=== PATIENT | female | born 1990 | race Caucasian/White ===

== ENCOUNTER 2017-09-28 20:14 | Emergency (ER) | payer SELFPAY ==
[2016-12-05 07:45] VITALS: Wt 124.7 kg
[~2017-09-28 20:14] MED LIST: ACE3 PO; BUTA1CAP5 PO; BUTA1TAB14 PO; Benzocaine 60 ML TP; CALC-515 PO; CEFD300C35 PO; CEFI400C PO; DOCU240C67 PO; DOXY-179 PO; DOXY-181 PO; HYDR2TAB4 PO; IBUP800T37 PO; LOR5/325 PO; Lanolin TP; MET2TH PO; OXYC-865 PO; PNV1TABL70 PO; TUCKS TP; TYLENOL; VISCOUS LIDOCAINE
[2017-09-28 20:17] VITALS: BP 127/112
--- NOTE | 2017-09-28 20:23 | ER Report ---
History and Physical Time Seen By MD: 20:15 HPI/ROS CHIEF COMPLAINT: Sore throat, fever HISTORY OF PRESENT ILLNESS: 27-year-old female presents ambulatory to the ER complaining of sore throat for 2 days. She is concerned she may have strep pharyngitis. She is afraid she might give it to her kids. Patient denies exposure to ill contacts. She denies rhinitis or ear pain. REVIEW OF SYSTEMS: Respiratory: No cough, no dyspnea. Cardiovascular: No chest pain, no palpitations. Gastrointestinal: No vomiting, no abdominal pain. Musculoskeletal: No back pain. Allergies: Coded Allergies: No Known Drug Allergies (Verified , 09/28/17) Home Meds Active Scripts Butalb/Acetaminophen/Caff 50-325-40 Mg (FIORICET 50-325-40) 1 Each Tab, 2 EACH PO Q4H Y for HEADACHE, #20 TAB Prov:WANDY RJOAS MD 12/27/14 Discontinued Reported Medications Calcium Carbonate (TUMS) 200 Mg Tab.chew, 200 MG PO, TAB.CHEW 12/05/16 Pnv Cmb#95/Ferrous Fumarate/Fa ( MULTIVITAMINS TABLET) 1 Each Tablet, 1 EACH PO 02/02/14 Discontinued Scripts Hydromorphone Hcl (HYDROMORPHONE HCL) 2 Mg Tablet, 2-4 MG PO Q4H Y for PAIN, # 14 TAB 0 Refills Prov:STEF CORRAL MD 12/06/16 Reviewed Nurses Notes: Yes Old Medical Records Reviewed: Yes Hx Smoking: Yes Smoking Status: Former Smoker Exposure to Second Hand Smoke?: No Hx Substance Use Disorder: No Hx Alcohol Use: No Constitutional Vital Sign - Last 24 Hours 09/28/17 09/28/17 20:17 20:29 Temp 99.5 Pulse 110 108 Resp 24 B/P (MAP) 127/112 Pulse Ox 94 98 O2 Delivery Room Air Physical Exam Vital signs stable, temp 99 5, pulse ox normal General Appearance: The patient is alert, has no immediate need for airway protection and no current signs of toxicity. HEENT: Pupils equal and round no injection. TMs normal, oropharynx with moderate erythema, mild tonsillar hypertrophy, no exudate Respiratory: Chest is non tender, lungs are clear to auscultation. Cardiac: regular rate and rhythm Gastrointestinal: Abdomen is soft and non tender, no masses, bowel sounds normal. No sputum megaly Musculoskeletal: Neck: Neck is supple and non tender. No lymphadenopathy Extremities have full range of motion and are non tender. Skin: No rashes or lesions. DIFFERENTIAL DIAGNOSIS: After history and physical exam differential diagnosis was considered for viral pharyngitis, strep pharyngitis, sinusitis, lymphadenopathy, otitis media Medical Decision Making Data Points Laboratory Hematology Test 09/28/17 20:19 Group A Streptococcus Screen Negative (NEGATIVE) Chemistry Test 09/28/17 20:19 Group A Streptococcus Screen Negative (NEGATIVE) Microbiology Microbiology Date/Time Source Procedure Growth Status 09/28/17 20:19 Throat Group A Streptococcus Screen ([facility]) - Final GROUP A STREP (STREPTOCOCCUS PYOGENES... Complete ED Course/Re-evaluation ED Course Patient was admitted to an examination room. H&P was done. The differential diagnoses was considered. On that ankle examination. Patient has acute pharyngitis. Rapid strep is performed which is negative. Patient's advised symptomatically treatment for her viral pharyngitis. Decision to Disposition Date: Sep 28, 2017 Decision to Disposition Time: 20:42 Depart Departure Latest Vital Signs Vital Signs Date Time Temp Pulse Resp B/P (MAP) Pulse Ox O2 Delivery O2 Flow Rate FiO2 09/28/17 20:29 108 98 09/28/17 20:17 99.5 24 127/112 Room Air Impression: Primary Impression: Viral pharyngitis Additional Impression: Myalgia Condition: Improved Disposition: HOME OR SELF-CARE Patient Instructions: Viral Syndrome (ED) Additional Instructions: Take ibuprofen and Tylenol as needed for symptom relief Use numbing throat lozenge or such as Cepastat Chloraseptic or Sucrets Follow-up with primary care if unimproved in 3-5 days. Problem Qualifiers RENATO ONEILL DO Sep 28, 2017 20:23
== END 2017-09-28 20:49 | disposition home or self-care (01) ==
LOC: ER 20:30
DX: J02.8 Acute pharyngitis due to other specified organisms (principal); M79.1 Myalgia
CPT/HCPCS: 87081; 87880; 99282